=== PATIENT | female | born 1960 | race Caucasian/White ===

== ENCOUNTER 2017-08-16 15:39 | Emergency (ER) | payer OTHER ==
[2017-08-16] MEDS: ACETAMINOPHEN 500 MG TAB PO (22:16)
== END 2017-08-17 01:26 | disposition home or self-care (01) ==
LOC: FTE 15:39
DX: T14.8XXA Other injury of unspecified body region, initial encounter (principal); R51 Headache; R07.89 Other chest pain; M62.838 Other muscle spasm; V49.49XA Driver injured in collision with other motor vehicles in traffic accident, initial encounter
CPT/HCPCS: 70450; 70486; 71046; 72125; 93005; 99285-25